=== PATIENT | female | born 1960 | race Caucasian/White ===

== ENCOUNTER 2018-04-21 09:30 | Emergency (ER) | payer OTHER ==
[~2018-04-21] VITALS: Ht 160 cm; Wt 99.8 kg
[2018-04-21 09:30] VITALS: BP_SYST 165
[~2018-04-21 09:30] MED LIST: BENA40TA65 PO; ESTR0.623 PO; SER25 PO; ZOLP10TA2 PO
--- NOTE | 2018-04-21 09:34 | NUR ---
Pt c/o chest pain brought to Bed #6 for triage and tx.
--- NOTE | 2018-04-21 09:35 | NUR ---
Pt presents to Ed c/o CP x 1 day. Pt denies SOB or nausea/vomiting. EKG performed at BS by GRETCHEN. Physician given copy of EKG for review.
[2018-04-21] MEDS ORDERED: NACL 0.9% 1,000 ML IV ONE (09:37)
--- NOTE | 2018-04-21 09:40 | NUR ---
# 20 gauge angiocath placed to . Use of asceptic technique. Opsite placed over site. Blood return noted. Blood for lab drawn from site. Flushed with 10 cc of normal saline. No evidence of infiltration noted. Patient tolerated well.
[2018-04-21] MEDS ORDERED: NITROGLYCERIN 0.4 MG TAB.SUBL SL ONE (09:45)
[2018-04-21] MEDS ORDERED: ASPIRIN 81 MG TAB.CHEW PO ONE (09:45)
[2018-04-21] MEDS ORDERED: CLOPIDOGREL BISULFATE 75 MG TABLET PO ONE (09:45)
--- NOTE | 2018-04-21 09:45 | NUR ---
ER at bedside examining patient.
[2018-04-21 09:55] LABS: BASOPHILS % (AUTO) 0.7 % (0.0-2.0); EOSINOPHILS # (AUTO) 0.1 K/uL (0.0-0.4); EOSINOPHILS % (AUTO) 1.4 % (0.0-4.0); HEMATOCRIT 39.4 % (36-48); HEMOGLOBIN 13.1 g/dL (12.0-16.0); LYMPHOCYTES # (AUTO) 2.8 K/uL (1.0-5.5); LYMPHOCYTES % (AUTO) 40.5 % (20.5-51.5); MEAN CORPUSCULAR HEMOGLOBIN 30 pg (27-31); MEAN CORPUSCULAR HGB CONC 33 % (32-36); MEAN CORPUSCULAR VOLUME 89 fL (79.0-98.0); MONOCYTES # (AUTO) 0.7 K/uL (0.0-1.0); MONOCYTES % (AUTO) 9.7 % (1.7-9.3); NEUTROPHILS # (AUTO) 3.4 K/uL (1.8-7.7); NEUTROPHILS % (AUTO) 47.7 % (40.0-70.0); PLATELET COUNT (AUTO) 339 K/uL (130-430); RED BLOOD CELL COUNT(AUTO) 4.46 MIL/uL (4.2-6.2); RED CELL DISTRIBUTION WIDTH 12.2 % (9.0-15.0)
--- NOTE | 2018-04-21 10:15 | NUR ---
pt tolerated medication well. Pt reports pain resolving at tolerable level . Continuing to monitor.
[2018-04-21 10:17] LABS: CALCIUM 8.6 mg/dL (8.4-11.0); CREATININE 0.69 mg/dL (0.55-1.30); POTASSIUM 3.9 mmol/L (3.5-5.1)
[2018-04-21 10:21] LABS: ALBUMIN 3.6 g/dL (3.4-4.8); TOTAL BILIRUBIN 0.3 mg/dL (0.0-1.0)
[2018-04-21 10:38] LABS: INR 0.9 (0.8-1.2); PROTHROMBIN TIME 9.5 SECS (9.5-12.5)
--- NOTE | 2018-04-21 11:00 | NUR ---
Pt ambulated restroom steady gait w/o assist. Pt has no c/o CP upon return.
--- NOTE | 2018-04-21 11:15 | NUR ---
Medication reconciliation completed with information provided by patient. Any prior medication reconciliation on file was reviewed and corrected.
[2018-04-21] MEDS ORDERED: CELE100C PO (11:21)
[2018-04-21 11:27] LABS: BILIRUBIN,URINE NEGATIVE (NEGATIVE); CLARITY/URINE CLEAR (CLEAR); COLOR,URINE YELLOW (YELLOW); GLUCOSE,URINE NEGATIVE (NEGATIVE); KETONES,URINE NEGATIVE (NEGATIVE); LEUKOCYTE ESTERASE ,URINE NEGATIVE (NEGATIVE); NITRITE, URINE NEGATIVE (NEGATIVE); PH,URINE 6.5 (5.0-8.0); PROTEIN URINE NEGATIVE (NEGATIVE); UROBILINOGEN,URINE 0.2 (0.2-1.0)
[2018-04-21 11:28] LABS: BLOOD, URINE TRACE (NEGATIVE)
[2018-04-21] MEDS ORDERED: HYDR-4100 PO (11:28)
[2018-04-21] MEDS ORDERED: ALPR0.5T96 PO (11:28)
[2018-04-21] MEDS ORDERED: CYCL-10 PO (11:29)
[2018-04-21 11:51] LABS: BACTERIA,URINE RARE /HPF (None Seen); MUCUS,URINE 1+ /LPF (None Seen); RBC,URINE 0-3 /HPF (0-3); WBC,URINE 0-3 /HPF (0-3)
[2018-04-21 12:30] VITALS: BP_SYST 154
--- NOTE | 2018-04-21 12:30 | NUR ---
Patient given written and verbal discharge instructions and verbalizes understanding. ER MD discussed with patient the results and treatment provided. Patient in stable condition. ID arm band removed. IV catheter removed intact and dressing applied, no active bleeding. Rx of Tylenol given. Patient educated on pain management and to follow up with PMD. Pain Scale 0. Opportunity for questions provided and answered. Medication side effect fact sheet provided.
== END 2018-04-21 12:30 | disposition home or self-care (01) ==
LOC: SED 09:30
DX: R07.89 Other chest pain (principal); I10 Essential (primary) hypertension; M79.7 Fibromyalgia; Z88.5 Allergy status to narcotic agent; Z79.899 Other long term (current) drug therapy
CPT/HCPCS: 36415; 71045; 80053; 81000; 82150; 82550; 83690; 84484; 85025; 85610; 85730; 99285; J7030; 93005